=== PATIENT | female | born 2000 ===

== ENCOUNTER 2021-05-09 15:53 | Emergency (ER) | payer OTHER ==
[~2021-05-09] VITALS: Ht 157.5 cm; Wt 54.0 kg
[2021-05-09 16:58] VITALS: BP 110/68
== END 2021-05-09 17:46 | disposition home or self-care (01) ==
LOC: ER 16:03
DX: O26.892 Other specified pregnancy related conditions, second trimester (principal); R10.33 Periumbilical pain; Z3A.17 17 weeks gestation of pregnancy; V49.9XXA Car occupant (driver) (passenger) injured in unspecified traffic accident, initial encounter; Y93.89 Activity, other specified; Y92.89 Other specified places as the place of occurrence of the external cause; Y99.8 Other external cause status
CPT/HCPCS: 76805